=== PATIENT | male | born 1985 | race Caucasian/White ===

== ENCOUNTER → 2021-09-12 | Outpatient (CLI) | payer OTHER ==
[~2021-09-12] MED LIST: AUGMENTIN 875-1 EACH PO; IBUPROFEN600 MG PO
== END ==
LOC: KOH-I 15:00
DX: M25.571 Pain in right ankle and joints of right foot (principal); M25.471 Effusion, right ankle
CPT/HCPCS: 73610

== ENCOUNTER 2021-09-13 09:10 | Emergency (ER) | payer OTHER ==
[~2021-09-13 09:10] MED LIST changes: -IBUPROFEN600 MG PO
[2021-09-13] MEDS ORDERED: IBUPROFEN600 MG PO (09:41)
== END 2021-09-13 09:48 | disposition home or self-care (01) ==
LOC: ER1 09:10
DX: S93.491A Sprain of other ligament of right ankle, initial encounter (principal); X50.9XXA Other and unspecified overexertion or strenuous movements or postures, initial encounter; Y92.89 Other specified places as the place of occurrence of the external cause; Y99.0 Civilian activity done for income or pay; I10 Essential (primary) hypertension; Z88.1 Allergy status to other antibiotic agents
CPT/HCPCS: 99283

== ENCOUNTER 2021-09-19 22:35 | Emergency (ER) | payer OTHER ==
[~2021-09-19 22:35] MED LIST changes: +IBUPROFEN600 MG PO
== END 2021-09-19 23:25 | disposition home or self-care (01) ==
LOC: ER1 22:35
DX: Z46.89 Encounter for fitting and adjustment of other specified devices (principal); M79.671 Pain in right foot; I10 Essential (primary) hypertension; Z88.1 Allergy status to other antibiotic agents
CPT/HCPCS: 99283

== ENCOUNTER → 2021-09-26 | Outpatient (CLI) | payer OTHER | LOC: KOH-I 08:07 | DX: M25.571 Pain in right ankle and joints of right foot (principal); M25.471 Effusion, right ankle; S93.491A Sprain of other ligament of right ankle, initial encounter | CPT/HCPCS: 73721 ==

== ENCOUNTER → 2021-09-28 | Outpatient (CLI) | payer OTHER | LOC: KOH-I 12:13 | DX: M54.50 Low back pain, unspecified (principal); M51.36 Other intervertebral disc degeneration, lumbar region | CPT/HCPCS: 72148 ==

== ENCOUNTER → 2021-10-22 | Outpatient (CLI) | payer OTHER ==
[~2021-10-22] MED LIST changes: +IBU400 MG PO; +LOSARTAN POTASS50 MG PO; +VITAMIN C500 M4 PO; +VITAMIN D21250 MCG PO
[2021-10-22 08:59] LABS: RED BLOOD COUNT 5.36 M/UL (4.20-5.50); WHITE BLOOD COUNT 9.3 K/UL (4.5-11.0)
[2021-10-22 09:08] LABS: BUN/CREATININE RATIO 8 (0-10)
== END ==
LOC: OPSV2 07:44
PROVIDERS: Podiatrist Foot & Ankle Surgery
DX: Z01.818 Encounter for other preprocedural examination (principal)
CPT/HCPCS: 36415; 80048; 85027; 93005

== ENCOUNTER → 2021-10-24 | Day surgery (SDC) | payer OTHER ==
[~2021-10-24] VITALS: Ht 165.1 cm; Wt 90.7 kg
== END | disposition home or self-care (01) ==
LOC: OR 07:30
DX: S93.491A Sprain of other ligament of right ankle, initial encounter (principal); M24.671 Ankylosis, right ankle; M25.371 Other instability, right ankle; R00.0 Tachycardia, unspecified; I10 Essential (primary) hypertension; Z88.1 Allergy status to other antibiotic agents; Z20.822 Contact with and (suspected) exposure to COVID-19; Z86.16 Personal history of COVID-19
CPT/HCPCS: C1713; J0171; J1100; J1170; J1885; J2250; J2405; J2704; J2795; J3010; J3370; J7120

== ENCOUNTER 2021-10-25 22:21 | Emergency (ER) | payer OTHER | END 2021-10-25 23:59 | disposition home or self-care (01) | LOC: ER1 22:21 | DX: G89.18 Other acute postprocedural pain (principal); M79.671 Pain in right foot | CPT/HCPCS: 93005; 96372; 99283; J1170; J1885 ==

== ENCOUNTER → 2021-11-12 | Outpatient (CLI) | payer OTHER | LOC: HEART 5 12:52 | DX: R06.02 Shortness of breath (principal) ==

== ENCOUNTER 2021-12-26 06:18 | Emergency (ER) | payer OTHER ==
[~2021-12-26 06:18] MED LIST changes: +FLOMAX0.4 MG PO
[2021-12-26 07:40] LABS: HEMOGLOBIN 16.1 gm/dl (14.0-17.5); RED BLOOD COUNT 5.11 M/UL (4.20-5.50); WHITE BLOOD COUNT 8.4 K/UL (4.5-11.0)
[2021-12-26 07:53] LABS: BUN/CREATININE RATIO 10 (0-10)
[2021-12-26] MEDS ORDERED: TORADOL 10 MG T10 MG PO (09:12)
== END 2021-12-26 09:31 | disposition home or self-care (01) ==
LOC: ER1 06:18
PROVIDERS: Physician Assistant
DX: N20.1 Calculus of ureter (principal); I10 Essential (primary) hypertension; Z88.1 Allergy status to other antibiotic agents
CPT/HCPCS: 80053; 81001; 85025; 96374; 99284; J1885